=== PATIENT | female | born 1970 | race Two or more races ===

== ENCOUNTER 2024-04-28 11:40 | Outpatient (CLI) | payer OTHER | END 2024-04-28 11:52 | disposition home or self-care (01) | LOC: MAMO-SONO 11:40 | DX: N64.89 Other specified disorders of breast (principal) ==

== ENCOUNTER → 2024-07-15 | Outpatient (CLI) | payer OTHER | END | disposition home or self-care (01) | LOC: NUCLEAR 13:07 | DX: M81.0 Age-related osteoporosis without current pathological fracture (principal) ==